=== PATIENT | male | born 1965 ===

== ENCOUNTER 2020-07-20 06:27 | Day surgery (SDC) | payer OTHER | END 2020-07-20 10:50 | disposition home or self-care (01) | LOC: AMB-ENDOS 06:27 | PROVIDERS: ATTEND Colon & Rectal Surgery | DX: D12.5 Benign neoplasm of sigmoid colon (principal); K62.1 Rectal polyp; K64.8 Other hemorrhoids; Z12.11 Encounter for screening for malignant neoplasm of colon ==